=== PATIENT | female | born 1990 | race Caucasian/White ===

== ENCOUNTER 2017-01-17 09:23 | Emergency (ER) | payer BC ==
--- NOTE | ~2017-01-17 | ER ---
PATIENT'S NAME: DAYANA WELLER [facility] AGE: 26 Y [address] ROOM: [place] [address] LOCATION: [facility] ADMIT DATE: 01/17/2017 ER/Outpatient Report DISCHARGE DATE: 01/17/2017 FAMILY PHYSICIAN: Physician, Unknown ATTENDING PHYSICIAN: Yves Avina CHIEF COMPLAINT: Fall. HISTORY OF PRESENT ILLNESS: Yesterday morning, the patient was getting ready to go to work when she felt lightheaded. She went outside standing next to her van and woke up on the ground several feet away from the vehicle. She had some abrasions on her right side of the face and has had some pain. She presented to primary care office who referred her here out of concern for possible facial fractures and need for imaging. Also, the patient notes that she has had these episodes before, but has not had them for quite a while. She states immediately after she checked her blood sugar and it was 125. She has otherwise felt fine. She is currently on her menses and does not think she could be . She is just taking yckl-nad-acqguib anti-inflammatories for this. Her last tetanus shot was definitely within the last 5 years and she thinks it was last year. PAST MEDICAL HISTORY: As documented on the record and had been reviewed by me. SOCIAL HISTORY: As documented on the record and had been reviewed by me. MEDICATIONS: As documented on the record and had been reviewed by me. ALLERGIES: DOCUMENTED ON THE RECORD AND HAD BEEN REVIEWED BY ME. REVIEW OF SYSTEMS: All systems were reviewed and negative except as noted in the HPI. PHYSICAL EXAMINATION: VITAL SIGNS: Blood pressure 132/82, pulse 75, respiratory rate is 18, temperature 97.5, and SpO2 is 100% on room air. GENERAL: Age-appropriate female. No obvious pain or distress, sitting upright on the exam table. PATIENT'S NAME: DAYANA WELLER [facility] AGE: 26 Y [address] ROOM: [place] [address] LOCATION: [facility] ADMIT DATE: 01/17/2017 ER/Outpatient Report DISCHARGE DATE: 01/17/2017 FAMILY PHYSICIAN: Physician, Unknown ATTENDING PHYSICIAN: Yves Avina HEENT: Normocephalic, grossly atraumatic except for abrasions and contusions around the right lateral orbital margin and zygoma. Extraocular movements are intact. Eyes are PERRL. Oropharynx is clear. No lesions or broken teeth. NECK: Supple. Trachea is midline. CHEST/HEART: Regular rate and rhythm. No murmurs. LUNGS: Clear to auscultation bilaterally with no rhonchi, wheezes, or rales. ABDOMEN: Soft, nontender, and nondistended. No rebound or guarding. BACK: Nontender to palpation throughout. No CVA tenderness. EXTREMITIES: Warm and well perfused. No obvious abnormalities. Some abrasions on the extremities, but no significant pain or crepitus with range of motion. SKIN: Warm, dry, and intact. LABS AND X-RAYS: CBC is unremarkable. CMS is without any significant abnormalities. HCG is below detectable threshold. EKG reveals sinus rhythm, ventricular rate of approximately 55 with otherwise normal intervals and axis. Head CT and max face CT were unremarkable per Radiology. EMERGENCY DEPARTMENT COURSE: The patient was seen and evaluated as above. Her tetanus is updated. No clear crepitus or abnormality on exam. CTs are negative for bleed or fracture. Metabolic workup and cardiac workup for dysrhythmia were not fruitful. Given that this is a recurrent issue per the patient, a Holter monitor was obtained and Dr. Mott at [facility] will follow that up. The patient did leave prior to obtaining her discharge instructions, but she will need to follow up with Dr. Mott for the results of the Holter monitor and for further evaluation. MD HONG GLASER/nona /[id number] d: 01/17/17 2318 t: 01/24/17 0647, OUTPATIENT REPORT
[2017-01-17 10:18] LABS: BASOPHIL % 0.6 %; EOSINOPHIL # 0.1 K/uL (0.0-0.5); EOSINOPHIL % 1.3 %; HEMATOCRIT 39.4 % (33.0-46.0); HEMOGLOBIN 13.4 g/dL (11.0-15.0); IMMATURE GRANULOCYTE % 0.3 %; LYMPHOCYTE # 1.1 K/uL (0.8-4.0); LYMPHOCYTE % 16.1 %; MCH 31.5 pg (27.0-34.0); MCV 92.7 fl (83.0-98.0); MONOCYTE # 0.5 K/uL (0.0-1.0); MONOCYTE % 7.6 %; MPV 10.2 fl (9.4-12.4); NEUTROPHIL # (ANC) 5.1 K/uL (1.8-7.8); NEUTROPHIL % 74.1 %; NRBC % 0 /100WBC (0-0.00); PLATELET COUNT 245 K/uL (150-450); RBC 4.25 M/uL (3.50-5.00); RDW-CV 11.9 % (11.9-14.6); WBC 6.8 K/uL (4.0-11.0)
[2017-01-17 10:37] LABS: ALBUMIN 4.1 gm/dL (3.5-5.0); ALK PHOS 59 IU/L (33-138); ALT 18 IU/L (12-78); ANION GAP 9.8 (10.0-19.0); AST 18 IU/L (10-40); BLOOD UREA NITROGEN 12 mg/dL (6-24); CALCIUM 8.3 mg/dL (8.5-10.5); CHLORIDE 109 mMol/L (96-110); CO2 27 mMol/L (22-32); CREATININE 0.8 mg/dL (0.5-1.1); ESTIMATED GFR (MDRD EQUATION) > 60; POTASSIUM 3.8 mMol/L (3.7-5.1); SODIUM 142 mMol/L (135-145); TOTAL BILIRUBIN 0.3 mg/dL (0.0-1.5); TOTAL PROTEIN 7.3 g/dL (6.0-8.4)
== END 2017-01-17 12:03 | disposition disaster alternative care site (69) ==
LOC: GMED 09:23
PROVIDERS: Emergency Medicine
DX: S00.83XA Contusion of other part of head, initial encounter (principal); S00.211A Abrasion of right eyelid and periocular area, initial encounter; W01.0XXA Fall on same level from slipping, tripping and stumbling without subsequent striking against object, initial encounter

== ENCOUNTER → 2017-02-04 | Outpatient (CLI) | payer BC ==
--- NOTE | ~2017-02-04 | ECHO ---
Cardiac Stress Test Demographics Patient Name DAYANA WELLER Date of Study 02/04/2017 Patient Number [id number] Visit Number [id number] Date of 1990 Room Number Gender Female Number Age 26 year(s) Referring Lisa Callaway Interpreting Lisa Callaway Physician Physician MD Physician Ordering Tow Mate Physician Supervising Belkis Hinojosa APRN Stress Scourer /MLP Nurse Mando Genao RN Procedure Type of Study Cardiac Stress Test:Tilt Table Study. Procedure Date Date: 02/04/2017 Start: 01:30 AM Indications:Syncope. Patient Status: Routine Conclusions Summary Test supervision by Ramone MENDES - Patient instructed about test procedure. Supine VS HR 81, SBP 123/80. Tilted to 80 degrees with immediate post VS HR 88, SBP 120/77. Maintained tilt for 40 minutes. No symptoms during entire test, no arrhythmias, and no ST changes. Patient returned to supine after tilt and allowed to recover - reassured no carotid bruit by assessment followed by carotid massage to right then left with 1 minute in-between each side. No EKG changes noted during or after carotid massage and no symptoms during testing. Recommendation Tilt table test negative. No evidence of vasodepressor/cardioinhibitory response or reproducible symptoms during tilt test. Recommend work up for non-cardiac causes of symptoms. Patient resulted after test completion. Stress Protocol Rest ECG Sinus arrhythmia Pre-Stress Physical Exam Assessed by Ramone MENDES prior to testing Chest - CTA Cardio - RRR, S1, S2, no carotid bruit Stress Predicted HR: 195 bpm HR Response: Appropriate BP Response: Appropriate Reason for Termination: Completed ECG No significant ST changes during tilt. Arrhythmias No arrhythmias noted. Symptoms None. Signature dtt: ANNALISE FERNANDEZ dtd: 02/04/17 0130 Physician Self Edit
== END | disposition disaster alternative care site (69) ==
LOC: GCAR 02-01 13:00
PROC: 4A02XFZ Measurement of Cardiac Rhythm, External Approach (ICD-10-PCS; principal; 2017-02-04)
PROC: 4A03XB1 Measurement of Arterial Pressure, Peripheral, External Approach (ICD-10-PCS; 2017-02-04)
DX: R55 Syncope and collapse (principal); R94.39 Abnormal result of other cardiovascular function study
CPT/HCPCS: J7030

== ENCOUNTER → 2017-02-08 | Outpatient (CLI) | payer BC ==
--- NOTE | ~2017-02-08 | NDGEN ---
PATIENT'S NAME: DAYANA WELLER [facility] AGE: 26 Y [address] ROOM: [place] [address] LOCATION: [facility] ADMIT DATE: 02/08/2017 Neurodiagnostics DISCHARGE DATE: FAMILY PHYSICIAN: Robert Mott MD ATTENDING PHYSICIAN: KEILY ANNA PROCEDURE: ELECTROENCEPHALOGRAM DATE OF PROCEDURE: 02/08/2017 STUDY TIME: 1239 hours. DESCRIPTION: A 26-year-old female patient who has had episodes of loss of consciousness, likely consistent with vasovagal syncope as it is not associated with any postictal phenomenon. The patient had this EEG to rule out any possibility of epileptiform features. This was a standard 20-lead EEG which was done with the patient awake, alert, and remained awake for the 20- minute study. Hyperventilation was done at the end of the study. The general background rhythm revealed a normal alpha rhythm of 9 to 10 Hz which remained stable throughout the whole study. Amplitudes were within normal limits between 25 to 50 mV. There was occasional blinking artifact seen in the frontal eye montoya, but otherwise a good background pattern without any interference was seen. With photic stimulation, there did not appear to be any epileptiform features, though it did produce a photic drive response with an increase in the amplitudes which is a normal response. At no time was there any epileptiform features seen, and no seizures recorded. IMPRESSION: Normal EEG. MD MARY NOBLE/modl /[id number] dtt: 02/09/17 2121 , KEILY ANNA. dtd: 02/09/17 1803
== END | disposition disaster alternative care site (69) ==
LOC: GNEU 10:00
DX: R55 Syncope and collapse (principal)